=== PATIENT | male | born 1990 | race Caucasian/White ===

== ENCOUNTER 2019-06-20 16:35 | Emergency (ER) | payer SELFPAY ==
[~2019-06-20] VITALS: Ht 165.1 cm; Wt 63.5 kg
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
--- NOTE | 2019-06-20 18:16 | NUR ---
Patient discharged to home in stable condition. Written and verbal after care instructions given. Patient verbalizes understanding of instruction. IV removed. Catheter intact and site benign. Pressure and 4x4 applied to site. No bleeding noted.
[2019-06-20 18:17] VITALS: BP 139/80
== END 2019-06-20 18:18 | disposition home or self-care (01) ==
LOC: ER 16:51
DX: M54.2 Cervicalgia (principal); R07.89 Other chest pain; M79.661 Pain in right lower leg; V23.4XXA Motorcycle driver injured in collision with car, pick-up truck or van in traffic accident, initial encounter; Y93.55 Activity, bike riding; Y92.413 State road as the place of occurrence of the external cause; Y99.8 Other external cause status
CPT/HCPCS: 70450-TC; 71045-TC; 72125-TC; 73590-TC